=== PATIENT | male | born 1995 | race Caucasian/White ===

== ENCOUNTER 2021-07-22 13:34 | Emergency (ER) | payer BC, MEDICAID, SELFPAY ==
[2021-07-22 13:49] VITALS: BP 159/70; PULSE 92; RESP 22; TEMP 37.6; O2SAT 99
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
[2021-07-22 14:57] LABS: Hematocrit 46.6 % (42.0-52.0); Hemoglobin 16.2 g/dL (14.0-18.0); Mean Corpuscular HGB Conc 34.8 g/dl (32-36); Mean Corpuscular Hemoglobin 31.1 pg (26-34); Mean Corpuscular Volume 89.4 fl (80-100); Platelet Count Result 358 k/mm3 (150-375); Red Blood Count 5.21 M/mm3 (4.6-6.20); Red Cell Distribution Width 11.9 % (11.5-14.5); White Blood Count 11.7 K/mm3 (4.5-10.0)
[2021-07-22 14:58] LABS: Basophils Percent Auto 0.3 % (0.2-1.2); Immature Granulocyte Absolute 0.05 K/mm3 (0.00-0.031); Immature Granulocyte Percent A 0.4 % (0-0.5); Lymphocytes Absolute Auto 1.89 K/mm3 (0.9-3.2); Lymphocytes Percent Auto 16.1 % (18.3-44.2); Mean Platelet Volume 9.6 fl (7.4-10.4); Monocytes Absolute Auto 0.7 K/mm3 (0.1-0.6); Monocytes Percent Auto 5.5 % (2.6-8.5); Neutrophils Absolute Auto 9.1 K/mm3 (1.3-6.7); Neutrophils Percent Auto 77.7 % (45.5-73.1)
[2021-07-22 15:05] LABS: Alanine Aminotransferase 25 U/L (4-50); Albumin Level 5.3 g/dL (3.5-5.1); Alkaline Phosphatase 70 U/L (38-126); Anion Gap 18 mmol/L (8-16); Aspartate Amino Transferase 29 U/L (17-59); Bilirubin,Total 0.7 mg/dL (0.2-1.3); Blood Urea Nitrogen 17 mg/dL (9-20); Calcium 9.6 mg/dL (8.4-10.2); Carbon Dioxide 17 mmol/L (22-30); Chloride 106 mmol/L (98-107); Estimated CRCL calculation 100 ml/min; Estimated Glomerular Filt Rate > 60; Ethanol < 10 mg/dL (<10); Glucose 120 mg/dL (65-110); Potassium 3.6 mmol/L (3.4-5.0); Sodium 141 mmol/L (137-145)
--- NOTE | 2021-07-22 15:05 | ED.GENADULT ---
HPI - General Adult General Chief complaint: Psychiatric Symptoms Stated complaint: psychiatric break Time Seen by Provider: 07/22/21 13:35 Source: patient Mode of arrival: EMS Limitations: clinical condition History of Present Illness HPI narrative: Patient brought to the emergency room by ambulance because of bizarre behavior. Currently patient is awake, alert oriented x4, complaining that he would like to go to sleep and would like to cover his eyes because it is too much light although the light is off but the door is open. Patient denies alcohol intake, does not remember any drug intake. According to EMT reported that patient admit having a lot of LSD and mushroom. Currently patient denying any suicidal or homicidal ideation. 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 Musculoskeletal: Normal range of motion, nontender back Neurologic: Alert and oriented ?3, ROLL FORM OPERATOR is normal as tested, no gross motor deficit Course Course Emergency Course: Stable Vital Signs Vital signs: Vital Signs Temperature 37.6 C 07/22/21 13:49 Pulse Rate 92 07/22/21 13:49 Respiratory Rate 22 H 07/22/21 13:49 Blood Pressure 159/70 H 07/22/21 13:49 Pulse Oximetry 99 07/22/21 13:49 Temperature 37.6 C 07/22/21 13:49 Pulse Rate 92 07/22/21 13:49 Respiratory Rate 22 H 07/22/21 13:49 Blood Pressure 159/70 H 07/22/21 13:49 Pulse Oximetry 99 07/22/21 13:49 Medical Decision Making Vital Signs Vital Signs: Vital Signs Temperature 37.6 C 07/22/21 13:49 Pulse Rate 92 07/22/21 13:49 Respiratory Rate 22 H 07/22/21 13:49 Blood Pressure 159/70 H 07/22/21 13:49 Pulse Oximetry 99 07/22/21 13:49 Temperature 37.6 C 07/22/21 13:49 Pulse Rate 92 07/22/21 13:49 Respiratory Rate 22 H 07/22/21 13:49 Blood Pressure 159/70 H 07/22/21 13:49 Pulse Oximetry 99 07/22/21 13:49 Lab Data Result diagrams: 07/22/21 14:41 07/22/21 14:41 Labs: Lab Results 07/22/21 07/22/21 07/22/21 Range/Units 14:41 14:41 14:41 WBC Pending RBC Pending Hgb Pending Hct Pending MCV Pending MCH Pending MCHC Pending RDW Pending Plt Count Pending MPV Pending Immature Gran % (Auto) Pending Neut % (Auto) Pending Lymph % (Auto) Pending Anderson % (Auto) Pending Eos % (Auto) Pending Baso % (Auto) Pending Lymph # (Auto) Pending Anderson # (Auto) Pending Eos # (Auto) Pending Baso # (Auto) Pending Abs Immat Gran (auto) Pending Absolute Neuts (auto) Pending Absolute Nucleated RBC Pending Nucleated RBC % Pending Sodium 141 (137-145) mmol/L Potassium 3.6 (3.4-5.0) mmol/L Chloride 106 (98-107) mmol/L Carbon Dioxide 17 L (22-30) mmol/L Anion Gap 18 H (8-16) mmol/L BUN 17 (9-20) mg/dL Creatinine 1.00 (0.7-1.3) mg/dL Estim Creat Clear
[2021-07-22 15:14] LABS: Amphetamine Screen Urine Negative (Negative); Barbiturate Screen Urine Negative (Negative); Benzodiazepines Screen Urine Negative (Negative); Cannabinoid Screen Urine Negative (Negative); Cocaine Screen Urine Negative (Negative); Methadone Screen Urine Negative (Negative); Opiate Screen Urine Negative (Negative); Phencyclidine Screen Urine Negative (Negative)
[2021-07-22 15:16] LABS: Add Urine Microscopic? YES; Appearance Urine Clear (Clear); Bilirubin Urine 1+ (Negative); Blood Urine Negative (Negative); Color Urine Amber (Yellow); Glucose Urine UA Negative (Negative); Ketones Urine 1+ mg/dL (Negative); Leukocyte Esterase Ur Negative LEU/UL (Negative); Mucus Urine Heavy /lpf; Nitrate Urine Negative (Negative); Protein Urine 2+ mg/dL (Negative); Squamous Epithelial Cell Urine Rare /hpf (Few); WBC Urine 0-3 /hpf
[2021-07-22 15:21] LABS: Specific Grav Ur 1.035 (1.001-1.035)
[2021-07-22 15:35] LABS: Thyroid Stimulating Hormone 0.692 uIU/mL (0.465-4.680)
[2021-07-22] MEDS: LORazepam (*CRX) 0.5 MG TABLET 1 MG PO (15:47)
--- NOTE | 2021-07-22 16:49 | PC.NURSE ---
crisis called to evaluate patient . left message
[2021-07-22 16:51] LABS: Creatine Kinase 192 U/L (55-170)
[2021-07-22 17:35] LABS: EDCOVIDSCREEN Negative (Negative)
--- NOTE | 2021-07-22 20:07 | ECG_ITS ---
Measurements Intervals [place] Rate: 58 P: 9 NC: 132 QRS: -20 QRSD: 98 T: 18 QT: 419 QTc: 412 Interpretive Statements SINUS BRADYCARDIA INCOMPLETE RIGHT BUNDLE BRANCH BLOCK BASELINE ARTIFACT- I, II, III, AVR, AVL, AVF BORDERLINE ECG Electronically Signed On 07-23-2021 7:40:15 MANAGER FILM by Wing Leiva D.O.
[2021-07-22 20:20] VITALS: BP 142/78; PULSE 78; RESP 18; O2SAT 99
--- NOTE | 2021-07-22 20:36 | PC.NURSE ---
patient refusing to have additional labs and ekg done.
--- NOTE | 2021-07-22 21:31 | PC.NURSE ---
sister, Gaye, called per patient request. Gaye was reached at [phone] and patient now refusing to get up and answer salmeron phone.
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
[2021-07-23 00:15] VITALS: BP 107/86; PULSE 120; RESP 18; O2SAT 100
--- NOTE | 2021-07-23 06:49 | PC.NURSE ---
Addendum entered by Christine Lowe RN 07/23/21 06:52: pt continues to manipulate staff and direct care to his liking. Original Note: pt awake requesting breakfast. pt refuses to have ekg done until he has breakfast. pt briefly spoke to sister on phone at [phone]. petition and ekg need to be re-faxed to prieto crowe today
--- NOTE | 2021-07-23 08:34 | ECG_ITS ---
Measurements Intervals [place] Rate: 103 P: 75 [place]: 127 QRS: 54 QRSD: 92 T: 44 QT: 343 QTc: 450 Interpretive Statements SINUS TACHYCARDIA POSSIBLE LEFT ATRIAL ENLARGEMENT BORDERLINE ST-T WAVE ABNORMALITY- INFERIOR LEADS BORDERLINE ECG Electronically Signed On 07-28-2021 12:36:59 AERIAL PLANTING AND CULTIVATION MANAGER by Wing Leiva D.O.
[2021-07-23 08:54] LABS: Magnesium 2.2 mg/dL (1.6-2.3)
[2021-07-23 10:48] LABS: SARS-CoV-2 RNA PCR Positive
--- NOTE | 2021-07-23 12:17 | PC.NURSE ---
Per patient's request, senior grant writer notified patient's sister, Gaye Mane, that patient's COVID PCR is positive. Gaye Mane phone number [phone].
[2021-07-23] MEDS: LORazepam (*CRX) 1 MG TABLET PO (12:54)
[2021-07-23] MEDS: NICOTINE (*PBKC) 14 MG PATCH 1 PATCH TRANSDERM (12:54)
--- NOTE | 2021-07-23 14:50 | PC.NURSE ---
Per ED senior electronics technician, patient jumping around in the room, standing on the bed, questioning everything, and throwing water.
[2021-07-23] MEDS: HALOPERIDOL LACTATE 5 MG/ML VIAL IM (14:58)
--- NOTE | 2021-07-23 15:52 | PC.NURSE ---
Patient resting with eyes closed on bed. Sitter at bedside.
[2021-07-23 16:02] VITALS: BP 116/48; PULSE 83; RESP 15; O2SAT 99
--- NOTE | 2021-07-23 16:21 | PC.NURSE ---
Gaye Mane, patient's sister called to get an update on patient status. Processing Talc And Borate Supervisor informed patient's sister that because patient is COVID positive it is harder to find placement. Gaye stated understanding and updated on crisis coming out to re-evaluate patient tonight.
--- NOTE | 2021-07-23 20:25 | PC.NURSE ---
Crisis in the ER for Re-eval and 24hr involuntary cert.
[2021-07-24] MEDS: NICOTINE (*PBKC) 21 MG PATCH 1 PATCH TRANSDERM (09:33)
--- NOTE | 2021-07-24 15:30 | PC.NURSE ---
Patient talkative and friendly with patient sitters today. Patient talking excessively but appropriately. Patient given multiple glasses of ice water per patient's request.
[2021-07-24 16:00] VITALS: BP 134/83; PULSE 95; RESP 14; TEMP 37; O2SAT 100
--- NOTE | 2021-07-24 19:45 | PC.NURSE ---
Patient becoming more agitated and arguing with staff.
[2021-07-24] MEDS: HALOPERIDOL LACTATE 5 MG/ML VIAL IM (20:44)
[2021-07-24] MEDS: LORazepam INJ (*CRX) 2 MG/ML VIAL IM (20:44)
--- NOTE | 2021-07-24 23:15 | PC.NURSE ---
Patient care report given to CAITIE Wolff. All questions answered at this time.
--- NOTE | 2021-07-25 00:07 | PC.NURSE ---
Assumed care of pt. Pt sleeping on stretcher at this time. Sitter at bedside.
[2021-07-25 02:11] VITALS: BP 131/86; PULSE 72; RESP 14; O2SAT 99
--- NOTE | 2021-07-25 04:36 | PC.NURSE ---
Pt laid blankets all over floor and now laying on floor of room at this time. Sitter at bedside.
--- NOTE | 2021-07-25 05:57 | PC.NURSE ---
pt given menu to order breakfast
--- NOTE | 2021-07-25 06:05 | PC.NURSE ---
called crisis regarding patients petition. They state they will send someone out for reevaluation
[2021-07-25 06:13] VITALS: BP 129/87; PULSE 75; RESP 18; TEMP 36.6; O2SAT 100
--- NOTE | 2021-07-25 07:27 | PC.NURSE ---
Sitter remains at bedside due to elopement risk
--- NOTE | 2021-07-25 07:59 | PC.NURSE ---
Lorenza from crisis reevaluated patient. She states, Patient does not meet criteria for placement at this time, Patient will be safety contracted and discharged home. She contacted patients family and they are going to be providing a cab home. EDP Aura and ED charge nurse Carmen aware of plan.
== END 2021-07-25 08:38 | disposition home or self-care (01) ==
PROVIDERS: Emergency Medicine; Emergency Provider Emergency Medicine
DX: T40.8X1A Poisoning by lysergide [LSD], accidental (unintentional), initial encounter (principal); T62.0X1A Toxic effect of ingested mushrooms, accidental (unintentional), initial encounter; U07.1 COVID-19
CPT/HCPCS: 36415; 80053; 80307; 81001; 82550; 83735; 84443; 85025; 87426; 93005; 96372; 99284; A9270; C9803; J1630; J2060; U0003; U0005